=== PATIENT | female | born 1995 | race Caucasian/White ===

== ENCOUNTER 2016-10-01 16:50 | Emergency (ER) | payer OTHER ==
[~2016-10-01] VITALS: Ht 162.6 cm; Wt 95.3 kg
[2016-10-01 16:53] VITALS: BP_SYST 126
--- NOTE | 2016-10-01 17:30 | NUR ---
pt. to room 7 AAOx4 for mild pelvic pain 2/ with vaginal bleeding which as per pt. she started vaginal bleeding two days ago, states she found out a week ago that she was , hCG is negative at this point
--- NOTE | 2016-10-01 17:40 | NUR ---
Dr. Morales at bedside examining the pt.
--- NOTE | 2016-10-01 17:50 | NUR ---
lab at bedside to draw blood
[2016-10-01 18:05] LABS: EOSINOPHILS # (AUTO) 0.1 K/uL (0.0-0.4); LYMPHOCYTES # (AUTO) 1.9 K/uL (1.0-5.5); MEAN CORPUSCULAR HEMOGLOBIN 28 pg (27-31); MEAN CORPUSCULAR HGB CONC 35 % (32-36); MEAN CORPUSCULAR VOLUME 80 fL (79.0-98.0)
[2016-10-01 18:07] LABS: BASOPHILS # (AUTO) 0.1 K/uL (0.0-0.2); BASOPHILS % (AUTO) 0.7 % (0.0-2.0); EOSINOPHILS % (AUTO) 0.5 % (0.0-4.0); HEMATOCRIT 37.6 % (36-48); HEMOGLOBIN 13.2 g/dL (12.0-16.0); LYMPHOCYTES % (AUTO) 12.9 % (20.5-51.5); MONOCYTES # (AUTO) 0.4 K/uL (0.0-1.0); NEUTROPHILS # (AUTO) 12.5 K/uL (1.8-7.7); NEUTROPHILS % (AUTO) 82.9 % (40.0-70.0); PLATELET COUNT (AUTO) 209 K/uL (130-430); RED BLOOD CELL COUNT(AUTO) 4.72 MIL/uL (4.2-6.2); RED CELL DISTRIBUTION WIDTH 12.5 % (9.0-15.0)
[2016-10-01 18:11] LABS: BILIRUBIN,URINE NEGATIVE (NEGATIVE); BLOOD, URINE 3+ (NEGATIVE); CLARITY/URINE CLEAR (CLEAR); COLOR,URINE YELLOW (YELLOW); GLUCOSE,URINE NEGATIVE (NEGATIVE); KETONES,URINE NEGATIVE (NEGATIVE); LEUKOCYTE ESTERASE ,URINE NEGATIVE (NEGATIVE); NITRITE, URINE NEGATIVE (NEGATIVE); PH,URINE 6.5 (5.0-8.0); PROTEIN URINE NEGATIVE (NEGATIVE); UROBILINOGEN,URINE 0.2 (0.2-1.0)
--- NOTE | 2016-10-01 18:11 | NUR ---
pt. out for ambulatory
--- NOTE | 2016-10-01 18:30 | NUR ---
pt. back from ambulatory
[2016-10-01 19:20] VITALS: BP_SYST 121
--- NOTE | 2016-10-01 19:20 | NUR ---
Patient given written and verbal discharge instructions and verbalizes understanding. ER MD Dr. Morales discussed with patient the results and treatment provided. Patient in stable condition. ID arm band removed. NO Rx given. Patient educated on pain management and to follow up with PMD. Pain Scale 0/10 Opportunity for questions provided and answered.
[2016-10-01 19:42] LABS: BACTERIA,URINE FEW /HPF (None Seen); MUCUS,URINE None Seen /LPF (None Seen); WBC,URINE 0-3 /HPF (0-3)
== END 2016-10-01 19:20 | disposition home or self-care (01) ==
LOC: SED 16:50
DX: O20.0 Threatened abortion (principal); Z3A.01 Less than 8 weeks gestation of pregnancy
CPT/HCPCS: 36415; 76830-TC; 76857; 81000-TC; 84702-TC; 85025; 86900; 86901; 99285

== ENCOUNTER 2016-10-12 09:42 | Emergency (ER) | payer OTHER ==
[~2016-10-12] VITALS: Ht 165.1 cm; Wt 95.3 kg
[2016-10-12 09:45] VITALS: BP_SYST 139
[2016-10-12 10:10] LABS: BASOPHILS # (AUTO) 0.2 K/uL (0.0-0.2); BASOPHILS % (AUTO) 2.6 % (0.0-2.0); EOSINOPHILS # (AUTO) 0.2 K/uL (0.0-0.4); EOSINOPHILS % (AUTO) 2.1 % (0.0-4.0); HEMATOCRIT 38.9 % (36-48); LYMPHOCYTES # (AUTO) 2.3 K/uL (1.0-5.5); LYMPHOCYTES % (AUTO) 27.5 % (20.5-51.5); MEAN CORPUSCULAR HEMOGLOBIN 27 pg (27-31); MEAN CORPUSCULAR HGB CONC 34 % (32-36); MEAN CORPUSCULAR VOLUME 82 fL (79.0-98.0); MONOCYTES # (AUTO) 0.4 K/uL (0.0-1.0); MONOCYTES % (AUTO) 5.2 % (1.7-9.3); NEUTROPHILS # (AUTO) 5.3 K/uL (1.8-7.7); NEUTROPHILS % (AUTO) 62.6 % (40.0-70.0); PLATELET COUNT (AUTO) 260 K/uL (130-430); RED BLOOD CELL COUNT(AUTO) 4.75 MIL/uL (4.2-6.2); RED CELL DISTRIBUTION WIDTH 12.4 % (9.0-15.0); WHITE BLOOD COUNT (AUTO) 8.4 K/uL (4.5-11.0)
[2016-10-12 10:16] LABS: BILIRUBIN,URINE NEGATIVE (NEGATIVE); BLOOD, URINE 3+ (NEGATIVE); CLARITY/URINE CLEAR (CLEAR); COLOR,URINE YELLOW (YELLOW); GLUCOSE,URINE NEGATIVE (NEGATIVE); KETONES,URINE NEGATIVE (NEGATIVE); LEUKOCYTE ESTERASE ,URINE NEGATIVE (NEGATIVE); NITRITE, URINE NEGATIVE (NEGATIVE); PROTEIN URINE NEGATIVE (NEGATIVE); UROBILINOGEN,URINE 0.2 (0.2-1.0)
[2016-10-12 10:24] LABS: BACTERIA,URINE RARE /HPF (None Seen); RBC,URINE 80-100 /HPF (0-3); WBC,URINE NONE SEEN /HPF (0-3)
[2016-10-12 10:26] LABS: PROTHROMBIN TIME 10.7 SECS (9.5-12.5)
[2016-10-12 11:47] VITALS: BP_SYST 129
== END 2016-10-12 11:46 | disposition home or self-care (01) ==
LOC: SED 09:42
DX: O20.9 Hemorrhage in early pregnancy, unspecified (principal); Z3A.01 Less than 8 weeks gestation of pregnancy
CPT/HCPCS: 36415; 76801; 76817; 81000-TC; 81025; 84702-TC; 85025; 85610-TC; 85730-TC; 86900; 86901; 99285

== ENCOUNTER 2017-03-19 09:55 | Emergency (ER) | payer MEDICAID, OTHER ==
[~2017-03-19] VITALS: Ht 162.6 cm; Wt 90.7 kg
[2017-03-19 09:55] VITALS: BP_SYST 142
[2017-03-19] MEDS ORDERED: PROPARACAINE (OPTHANINE 0.5%) 15 ML DROPS OP ONE (10:45)
[2017-03-19] MEDS ORDERED: ERYTHROMYCIN 0.5% EYE OINT 3.5 GM OP ONE (11:30)
[2017-03-19] MEDS ORDERED: IBUPROFEN 800 MG TABLET PO ONE (11:30)
[2017-03-19 12:24] VITALS: BP_SYST 120
== END 2017-03-19 12:23 | disposition home or self-care (01) ==
LOC: SED 09:55
DX: H16.002 Unspecified corneal ulcer, left eye (principal)
CPT/HCPCS: 99284

== ENCOUNTER 2017-05-03 09:23 | Emergency (ER) | payer MEDICAID ==
[~2017-05-03] VITALS: Ht 162.6 cm; Wt 95.3 kg
[2017-05-03 09:29] VITALS: BP_SYST 162
[2017-05-03 09:57] LABS: BILIRUBIN,URINE NEGATIVE (NEGATIVE); BLOOD, URINE 3+ (NEGATIVE); CLARITY/URINE HAZY (CLEAR); COLOR,URINE RED (YELLOW); GLUCOSE,URINE NEGATIVE (NEGATIVE); KETONES,URINE NEGATIVE (NEGATIVE); LEUKOCYTE ESTERASE ,URINE NEGATIVE (NEGATIVE); NITRITE, URINE NEGATIVE (NEGATIVE); PH,URINE 8.5 (5.0-8.0); PROTEIN URINE NEGATIVE (NEGATIVE); UROBILINOGEN,URINE 0.2 (0.2-1.0)
[2017-05-03 10:01] LABS: BASOPHILS # (AUTO) 0.1 K/uL (0.0-0.2); BASOPHILS % (AUTO) 1.2 % (0.0-2.0); EOSINOPHILS # (AUTO) 0.1 K/uL (0.0-0.4); EOSINOPHILS % (AUTO) 1.6 % (0.0-4.0); HEMATOCRIT 40.9 % (36-48); HEMOGLOBIN 13.6 g/dL (12.0-16.0); LYMPHOCYTES # (AUTO) 1.5 K/uL (1.0-5.5); LYMPHOCYTES % (AUTO) 16.2 % (20.5-51.5); MEAN CORPUSCULAR HEMOGLOBIN 28 pg (27-31); MEAN CORPUSCULAR HGB CONC 33 % (32-36); MEAN CORPUSCULAR VOLUME 83 fL (79.0-98.0); MONOCYTES # (AUTO) 0.4 K/uL (0.0-1.0); MONOCYTES % (AUTO) 4.6 % (1.7-9.3); NEUTROPHILS # (AUTO) 7.2 K/uL (1.8-7.7); NEUTROPHILS % (AUTO) 76.4 % (40.0-70.0); PLATELET COUNT (AUTO) 213 K/uL (130-430); RED BLOOD CELL COUNT(AUTO) 4.91 MIL/uL (4.2-6.2); RED CELL DISTRIBUTION WIDTH 12.8 % (9.0-15.0); WHITE BLOOD COUNT (AUTO) 9.3 K/uL (4.5-11.0)
[2017-05-03 10:04] LABS: HCG,QUAL RESULT POSITIVE (NEGATIVE)
[2017-05-03 10:07] LABS: BACTERIA,URINE FEW /HPF (None Seen); MUCUS,URINE 1+ /LPF (None Seen); RBC,URINE >100 /HPF (0-3); WBC,URINE 0-3 /HPF (0-3)
[2017-05-03 10:13] LABS: CALCIUM 8.7 mg/dL (8.4-11.0); CREATININE 0.79 mg/dL (0.55-1.30)
[2017-05-03 10:24] LABS: TOTAL BILIRUBIN 0.6 mg/dL (0.0-1.0)
[2017-05-03 11:43] VITALS: BP_SYST 145
== END 2017-05-03 11:43 | disposition home or self-care (01) ==
LOC: SED 09:23
DX: O20.0 Threatened abortion (principal); Z3A.01 Less than 8 weeks gestation of pregnancy
CPT/HCPCS: 36415; 76801; 76817; 80053; 81000-TC; 81025; 84702-TC; 84703; 85025; 86900; 86901; 99285

== ENCOUNTER 2017-07-02 12:18 | Emergency (ER) | payer MEDICAID ==
[~2017-07-02] VITALS: Ht 162.6 cm; Wt 90.7 kg
[2017-07-02 12:18] VITALS: BP_SYST 121
--- NOTE | 2017-07-02 15:52 | NUR ---
PT PLACED IN [facility]
--- NOTE | 2017-07-02 15:57 | NUR ---
Pt complains of cough, sore throat and fever for the past 2 days, denies n/v or diarrhea. Pt states is and just wants to make sure everything is ok. Pt has been taking tylenol for the fever and today in ER pt is afebrile. No other injuries/complaints per pt or noted.
--- NOTE | 2017-07-02 16:09 | NUR ---
ER at bedside examining patient.
[2017-07-02 16:35] VITALS: BP_SYST 121
--- NOTE | 2017-07-02 16:35 | NUR ---
Patient given written and verbal discharge instructions and verbalizes understanding. ER MD discussed with patient the results and treatment provided. Patient in stable condition. ID arm band removed. No Rx given. Patient educated on pain management and to follow up with PMD within 2-3days. Pain Scale 0/10; pt and MD agreeable to discharge home. Opportunity given to answer all questions to satisfaction.
== END 2017-07-02 16:35 | disposition home or self-care (01) ==
LOC: SED 12:18
DX: J06.9 Acute upper respiratory infection, unspecified (principal); Z90.49 Acquired absence of other specified parts of digestive tract
CPT/HCPCS: 36415; 86710; 99284

== ENCOUNTER 2018-09-12 10:30 | Observation (INO) | payer MEDICAID | END 2018-09-12 11:15 | disposition home or self-care (01) | LOC: SPU 10:30 | PROVIDERS: ADMIT Specialist; ATTEND Specialist | DX: O26.892 Other specified pregnancy related conditions, second trimester (principal); R03.0 Elevated blood-pressure reading, without diagnosis of hypertension; R51 Headache; Z3A.21 21 weeks gestation of pregnancy | CPT/HCPCS: 81002-TC; G0378 ==

== ENCOUNTER 2020-01-24 20:48 | Emergency (ER) | payer MEDICAID ==
[~2020-01-24] VITALS: Ht 167.6 cm; Wt 90.7 kg
[2020-01-24 21:22] VITALS: BP_SYST 124
--- NOTE | 2020-01-24 21:25 | NUR ---
Patient triaged and placed in waiting room. VSS and patient appears in no acute distress at this time. Accompanied by self , awaiting available bed, and MD notified of need for MSE.
--- NOTE | 2020-01-24 21:27 | NUR ---
Pt brought by self,A&Ox4, pt presents to ER with L breast pain after , pt states her baby has thrush , afebrile,skin pink and warm
--- NOTE | 2020-01-24 22:20 | NUR ---
Dr Bruno assessing patient in the triage room
[2020-01-24 22:46] VITALS: BP_SYST 124
--- NOTE | 2020-01-24 22:46 | NUR ---
Patient given written and verbal discharge instructions and verbalizes understanding. ER MD discussed with patient the results and treatment provided. Patient in stable condition. ID arm band removed. Rx of Nystatin given. Patient educated on pain management and to follow up with PMD. Pain Scale 2/10 . Opportunity for questions provided and answered. Medication side effect fact sheet provided.
== END 2020-01-24 22:46 | disposition home or self-care (01) ==
LOC: SED 20:48
DX: B37.89 Other sites of candidiasis (principal)
CPT/HCPCS: 99283

== ENCOUNTER 2021-09-10 18:21 | Emergency (ER) | payer OTHER, MEDICAID ==
[~2021-09-10] VITALS: Ht 165.1 cm; Wt 117.9 kg
[2021-09-10 18:22] VITALS: BP_SYST 143
[2021-09-10] MEDS ORDERED: PROPARACAINE (OPTHANINE 0.5%) 15 ML DROPS OP ONE (19:45)
[2021-09-10 20:50] VITALS: BP_SYST 137
[2021-09-10] MEDS ORDERED: ERYTHROMYCIN 0.5% EYE OINT 3.5 GM OP ONE (21:15)
[2021-09-10] MEDS ORDERED: ERYTHROMYCIN BASE 0.5% EYE OINT...G. ONE (21:20)
[2021-09-10] MEDS ORDERED: ERYEYE LEFT EAR (21:27)
== END 2021-09-10 22:15 | disposition home or self-care (01) ==
LOC: SED 18:21
DX: S00.212A Abrasion of left eyelid and periocular area, initial encounter (principal); X58.XXXA Exposure to other specified factors, initial encounter; Y93.89 Activity, other specified; Y92.89 Other specified places as the place of occurrence of the external cause; Y99.8 Other external cause status
CPT/HCPCS: 99283